=== PATIENT | male | born 1960 ===

== ENCOUNTER → 2024-05-17 09:03 | Outpatient (REF) | payer OTHER, SELFPAY | LOC: HWRCS 09:03 | PROVIDERS: ATTENDING PHYSICIAN Internal Medicine Cardiovascular Disease; FAMILY PHYSICIAN Internal Medicine | DX: R06.02 Shortness of breath (principal) | CPT/HCPCS: 93306 ==

== ENCOUNTER 2024-05-28 10:54 | Emergency (ER) | payer OTHER, SELFPAY ==
[2024-05-28] VITALS (7 sets, daily range): BP systolic 146–184; BP diastolic 80–117; BMI 32.6
[2024-05-28 11:44] LABS: % Basophils 1.1 % (0-2); % Eosinophils 6.4 % (0-6); % Immature Granulocytes 0.4 % (0-0.5); % Lymphocytes 21.2 % (20.5-51.1); % Monocytes 6.7 % (1.7-9.3); % Neutrophils 64.2 % (42.2-75.2); Absolute Basophils 0.1 10^3/uL (0-0.2); Absolute Eosinophils 0.7 10^3/uL (0-0.7); Absolute Lymphocytes 2.2 10^3/uL (1.2-3.4); Absolute Monocytes 0.7 10^3/uL (0.1-0.6); Absolute Neutrophils 6.7 10^3/uL (1.4-6.5); Hematocrit 43.9 % (39.0-52.0); Hemoglobin 15.8 g/dL (13.0-18.0); Mean Corpuscular Hgb 30.8 pg (27.0-31.0); Mean Corpuscular Volume 85.6 fL (80.0-94.0); Mean Platelet Volume 9.5 fL (7.4-10.4); Nucleated Red Blood Cells % 0 % (-); Platelet Count 242 10^3/uL (130-400); Red Blood Cell Count 5.13 10^6/uL (4.70-6.10); Red Cell Dist. Width 13.1 % (11.5-14.5); White Blood Cell Count 10.4 10^3/uL (4.8-10.8)
[2024-05-28 11:56] LABS: ALT (SGPT) 28 U/L (0-50); AST (SGOT) 25 U/L (17-59); Albumin 4.4 g/dl (3.5-5.0); Alkaline Phosphatase 130 U/L (38-126); Blood Urea Nitrogen 24 mg/dl (9-20); Carbon Dioxide 30 mmol/L (22-30); Chloride 103 mmol/L (98-107); Estimated Creatinine Clearance 77 ml/min; Glucose 207 mg/dl (70-99); Potassium 3.3 mmol/L (3.5-5.1); Sodium 140 mmol/L (135-145); Total Bilirubin 1.2 mg/dl (0.2-1.3); Total Protein 7.5 g/dl (6.3-8.2); eGFR > 60.00
[2024-05-28 12:12] LABS: Troponin I < 0.012 ng/ml
--- NOTE | 2024-05-28 12:17 | ED.GENMED ---
History of Present Illness
<Jennifer Liu PA-C - Last Filed: 05/28/24 20:52>
General
Chief Complaint: Chest Pain
Source: patient
Exam Limitations: none
Time Seen by Provider: 05/28/24 12:00
Nursing documentation reviewed up to this point in time: agreed with
History of Present Illness
History of Present Illness:
pt is a 64 y/o M with h/o HTN, HLD, NIDDM
here with chest pressure starting around 10 am while at rest
pt says he woke up feeling short of breath earlier with some cough
he didn't feel right
but didn't have pain until 10 am
his pain is a pressure but worse with deep breathing, gets a sharp pain and feels like he cannot take a deep breath
has never had a PE. did do some traveling to [facility] 2 mo ago
had outpatient echo 05/[address] brown after check up since it had been a lont time since he had seen cards
he has had previous sob episodes in the past which he say are attributed to anxiety attacks; no h/o stents
but he doesn't usually have pain with anxiety
has not notice dleg edema
no smoking
Phy Exam
<Jennifer Liu PA-C - Last Filed: 05/28/24 20:52>
Physical Exam
Physical Exam:
GENERAL: Alert , patient appears slightly uncomfortable
EYE: pupils equal and reactive
NECK: Supple
ENT: o/p clr, mmm.
CARDIAC: No appreciated murmur, regular
LUNGS: Possible crackles in bilateral bases, no acute respiratory distress, no wheezes/rhonchi
ABDOMEN: Soft, obese without focal tenderness, no r/g, no cvat, normal bowel sounds
NEUROLOGICAL: Alert and oriented, no focal neuro deficits
SKIN: Warm and dry, skin intact.
MUSCULOSKELETAL: Trace bilateral symmetric nontender edema, well perfused. neg ashish's sign
PSYCH: Normal and appropriate interaction.
Scores
<Jennifer Liu PA-C - Last Filed: 05/28/24 20:52>
Heart Score for Chest Pain Patients
STEMI patient?: No
History: Moderately Suspicious
ECG: Nonspecific Repolarization
Age: >45 - <65 years
Risk Factors: >/= 3 Risk Factors or History of CAD
Troponin: </= Normal Limit
Heart Score for Chest Pain Patients: 5
Heart Score Risk: 20.3% MACE over next 6 weeks
Course
<Jennifer Liu PA-C - Last Filed: 05/28/24 20:52>
Orders/Labs/Results
Orders:
Orders
05/28/24 10:54
ECG [Electrocardiogram (*1)] Urgent
Reason for Study: Chest Pain
05/28/24 10:55
EKG- Treatment ONCE
05/28/24 11:37
Cardiac Monitoring- Treatment ONCE
IV Insert/Care/Rem.- Treatment PRN
05/28/24 11:38
Complete Blood Count/With Diff Urgent
Comprehensive Metabolic Panel Urgent
NT-proBNP Urgent
Comment: ADD ON
Troponin I Urgent
05/28/24 12:15
CT Chest Pe Study Urgent
Comment:
Reason For Exam: pleuritic pain, sob
Nitroglycerin Sublingual [Nitrostat (Sublingual)] 0.4 mg SL NOW STA
05/28/24 12:16
Add On- LAB Urgent
Tests Added?: bnp
05/28/24 12:18
Add On- LAB Urgent
Tests Added?: Pro BNP
05/28/24 12:20
Aspirin Chewable [Low Strength Aspirin] 324 mg PO NOW STA
05/28/24 12:23
Electrocardiogram (*1) Urgent
Reason for Study: Chest Pain
EKG- Treatment ONCE
PTT Urgent
Prothrombin Time Urgent
05/28/24 13:43
Electrocardiogram (*1) Urgent
Reason for Study: Chest Pain
EKG- Treatment ONCE
05/28/24 13:54
Nitroglycerin Sublingual [Nitrostat (Sublingual)] 0.4 mg SL NOW STA
05/28/24 13:[address] Non Medication Order As Directed
Physician Order: PTT 6 hours after initial start of Heparin infusion
Above order entered?: Yes
05/28/24 14:00
Troponin I Urgent
Heparin [id number] Units/250 ml 25,000 units in 250 ml IV PER PROTOCOL
Weight to be used for heparin protocol in kilograms (kg):: 103
Protocol:: Cardiac Tx/Acute Coronary
PTT Goal Range to be used:: PTT 73 to 111 seconds
Order type:: Initial
INITIAL Infusion Dose (UNITS/KG/hr) & then follow protocol:: 15 units/kg/hr
Infusion Dose in UNITS/hr & then follow protocol (UNITS/hr):: 1,500
INFUSION RATE in mL/hr & then follow protocol (mL/hr):: 15
PTT less than or equal to 64 seconds:: Increase rate by 200 units/hr (+ 2 mL/hr)
PTT 64.1 to 72.9 seconds:: Increase rate by 100 units/hr (+ 1 mL/hr)
PTT 73 to 111 seconds:: Target Range. No change in rate.
PTT 111.1 to 130.9 seconds:: Decrease rate by 100 units/hr (- 1 mL/hr)
PTT 131 to 199.9 seconds:: HOLD for 1 hr. Then decrease rate by 200 units/hr (- 2 mL/hr)
PTT greater than or equal to 200 seconds:: HOLD for 2 hrs & Notify Provider. Then decrease by 200 units/hr (-
2 mL/hr)
Lab follow-up:: Each change, PTT q6h until 2 consecutive are therapeutic. Then PTT
daily.
05/28/24 15:15
Carvedilol [Coreg] 3.125 mg PO NOW STA
Abnormal Lab Results
05/28/24
11:38
Absolute Neuts (auto) 6.7 H 10^3/uL
(1.4-6.5)
Absolute Monos (auto) 0.7 H 10^3/uL
(0.1-0.6)
Eosinophils % 6.4 H %
(0-6)
Potassium 3.3 L mmol/L
(3.5-5.1)
BUN 24 H mg/dl
(9-20)
Glucose 207 H mg/dl
(70-99)
Alkaline Phosphatase 130 H U/L
(38-126)
05/28/24 11:38
05/28/24 11:38
Vital Signs
Initial and Last Documented VS:
Initial Vital Signs
Temp Pulse Resp BP Pulse Ox
97.9 F 101 20 184/117 98
05/28/24 11:04 05/28/24 11:04 05/28/24 11:04 05/28/24 11:04 05/28/24 11:04
Last Documented Vital Signs
Temp Pulse Resp BP Pulse Ox
97.9 F 107 10 170/90 98
05/28/24 11:04 05/28/24 16:15 05/28/24 12:45 05/28/24 16:00 05/28/24 16:15
<Madi Figueroa DO - Last Filed: 05/28/24 14:27>
Orders/Labs/Results
Orders:
Orders
05/28/24 10:54
ECG [Electrocardiogram (*1)] Urgent
Reason for Study: Chest Pain
05/28/24 10:55
EKG- Treatment ONCE
05/28/24 11:37
Cardiac Monitoring- Treatment ONCE
IV Insert/Care/Rem.- Treatment PRN
05/28/24 11:38
Complete Blood Count/With Diff Urgent
Comprehensive Metabolic Panel Urgent
NT-proBNP Urgent
Comment: ADD ON
Troponin I Urgent
05/28/24 12:15
CT Chest Pe Study Urgent
Comment:
Reason For Exam: pleuritic pain, sob
Nitroglycerin Sublingual [Nitrostat (Sublingual)] 0.4 mg SL NOW STA
05/28/24 12:16
Add On- LAB Urgent
Tests Added?: bnp
05/28/24 12:18
Add On- LAB Urgent
Tests Added?: Pro BNP
05/28/24 12:20
Aspirin Chewable [Low Strength Aspirin] 324 mg PO NOW STA
05/28/24 12:23
Electrocardiogram (*1) Urgent
Reason for Study: Chest Pain
EKG- Treatment ONCE
PTT Urgent
Prothrombin Time Urgent
05/28/24 13:43
Electrocardiogram (*1) Urgent
Reason for Study: Chest Pain
EKG- Treatment ONCE
05/28/24 13:54
Nitroglycerin Sublingual [Nitrostat (Sublingual)] 0.4 mg SL NOW STA
05/28/24 13:[address] Non Medication Order As Directed
Physician Order: PTT 6 hours after initial start of Heparin infusion
Above order entered?: Yes
05/28/24 14:00
Troponin I Urgent
Heparin [id number] Units/250 ml 25,000 units in 250 ml IV PER PROTOCOL
Weight to be used for heparin protocol in kilograms (kg):: 103
Protocol:: Cardiac Tx/Acute Coronary
PTT Goal Range to be used:: PTT 73 to 111 seconds
Order type:: Initial
INITIAL Infusion Dose (UNITS/KG/hr) & then follow protocol:: 15 units/kg/hr
Infusion Dose in UNITS/hr & then follow protocol (UNITS/hr):: 1,500
INFUSION RATE in mL/hr & then follow protocol (mL/hr):: 15
PTT less than or equal to 64 seconds:: Increase rate by 200 units/hr (+ 2 mL/hr)
PTT 64.1 to 72.9 seconds:: Increase rate by 100 units/hr (+ 1 mL/hr)
PTT 73 to 111 seconds:: Target Range. No change in rate.
PTT 111.1 to 130.9 seconds:: Decrease rate by 100 units/hr (- 1 mL/hr)
PTT 131 to 199.9 seconds:: HOLD for 1 hr. Then decrease rate by 200 units/hr (- 2 mL/hr)
PTT greater than or equal to 200 seconds:: HOLD for 2 hrs & Notify Provider. Then decrease by 200 units/hr (-
2 mL/hr)
Lab follow-up:: Each change, PTT q6h until 2 consecutive are therapeutic. Then PTT
daily.
05/28/24 15:15
Carvedilol [Coreg] 3.125 mg PO NOW STA
Abnormal Lab Results
05/28/24
11:38
Absolute Neuts (auto) 6.7 H 10^3/uL
(1.4-6.5)
Absolute Monos (auto) 0.7 H 10^3/uL
(0.1-0.6)
Eosinophils % 6.4 H %
(0-6)
Potassium 3.3 L mmol/L
(3.5-5.1)
BUN 24 H mg/dl
(9-20)
Glucose 207 H mg/dl
(70-99)
Alkaline Phosphatase 130 H U/L
(38-126)
05/28/24 11:38
05/28/24 11:38
Vital Signs
Initial and Last Documented VS:
Initial Vital Signs
Temp Pulse Resp BP Pulse Ox
97.9 F 101 20 184/117 98
05/28/24 11:04 05/28/24 11:04 05/28/24 11:04 05/28/24 11:04 05/28/24 11:04
Last Documented Vital Signs
Temp Pulse Resp BP Pulse Ox
97.9 F 107 10 170/90 98
05/28/24 11:04 05/28/24 16:15 05/28/24 12:45 05/28/24 16:00 05/28/24 16:15
<Jennifer Liu PA-C - Last Filed: 05/28/24 20:52>
MDM/Problems Addressed
Differential Diagnosis Includes:
NSTEMI, PE, less likely aortic dissection, pericarditis, myocarditis
MDM/Problems Addressed:
64-year-old M with h/o htn, jhld
obesity
no previous CAD
previous anxiety epipsodes
here with sob this mronig
now chestp ressure with breathing and worsening SOB since 10 am
pt appears uncomfortable, not hypoxoci, splintning, hypertensive but improved from triage
symmetric bps
ekg is abnormal but no old ekg visible, has inferior lateral t wave inversions without depressions, first trop neg but early
d/w dr benavides ed attending initially
given nitro and aspirin with mod relief of chest pressure from 7 to 3/10
ct pe neg
2nd ekg shows slightly worsening t waves, deeper with 1 mm depression v4, what looks like maybe reciprocal changes I, avL
d/w agronomy teacher [facility] cards dr horton who sent dr. brown to see pt who knows him
2nd dose of nitro also helped
heparin empirically started
pt seen by cards
2nd trop was neg
3rd ekg similar to previous
they were able to obtain oldekg which looked somewhat similar
given 2 neg trops, they felt that pt could be discharged
appreacite pt's tachycardia 108 range, maybe related to nitro
they recommended coreg and scheduled pt for stress test in 3 days.
<Jennifer Liu PA-C - Last Filed: 05/28/24 20:52>
*Critical Care Note
Total Time (30-74mins, 75-104mins- exclusive of procedures): Not Applicable
ED Attending Note
<Jennifer Liu PA-C - Last Filed: 05/28/24 20:52>
-
Portions of this chart may have been created with voice recognition software.� Occasional wrong word or��sound alike� substitutions may have occurred due to the inherent limitations of voice recognition software.
<Madi Figueroa DO - Last Filed: 05/28/24 14:27>
ED Attending Note
Patient seen and examined by attending physician: Yes
I performed the substantive portion of visit, reviewed & personally made and approve the management plan that is documented in note by myself or JENNIFER.: Yes
ED Attending Note:
62-year-old male presents with chest discomfort as described above. On my evaluation he states the pain is down to about a 1. Does have some history and risks including hypertension diabetes and obesity. Patient does describe a tightness that is
worse when he breathes but there is a baseline level of tightness in his chest. Does have some subtle EKG changes. Exam: Obese, awake and alert, resting heart rate at 108 on my exam. Heart regular. No murmur. Trace edema of the legs.
Assessment and plan: IV heparin, continue nitrates as needed. Trend troponin. Cardiology at bedside
Discharge Plan
Departure
Patient Disposition: Home (Routine Discharge)
Date of Disposition: 05/28/24
Time of Disposition: 16:17
Patient with high blood pressure during this ER visit?: Yes
Condition: Fair
Covid-19: Not Applicable
Discharge Problem:
Chest pain
Instructions: Chest Pain DCA Follow Up
Prescriptions:
New
carvedilol [Coreg] 3.125 mg tablet
3.125 mg PO BID Qty: 60 11RF
aspirin 81 mg tablet,chewable
81 mg PO DAILY Qty: 1 0RF
Referrals:
UNKNOWN - PT DOES,NOT KNOW [Family Provider] -
Activity Restrictions/Additional Instructions:
Dr. rBown's office will call you to arrange for stress testing to assess for coronary artery disease.
(IT IS SCHEDULED FOR Friday 730 AM)
Interventions
Interventions:
*Risk Screen - Suicide Last Done: 05/28/24 11:04
*General Assessment Last Done: 05/28/24 11:04
*Neglect/Abuse Screening Last Done: 05/28/24 11:04
ED- Fall Risk Assessment Last Done: 05/28/24 11:49
*Nursing Disposition Last Done: 05/28/24 16:30
ED- Cardiac Assessment Last Done: 05/28/24 11:49
Discharge Date and Time
Discharge Date/Time: 05/28/24 16:30
Print Language: IRISH
[2024-05-28] MEDS: NITROSTAT (SUBLINGUAL) 0.400000000000000022 MG SL ×2 (12:24→13:58)
[2024-05-28] MEDS: LOW STRENGTH ASPIRIN 324 MG PO (12:24)
[2024-05-28 12:43] LABS: NT-proBNP 40.7 pg/ml
[2024-05-28 12:45] LABS: INR 1.04; PT 13.4 Sec (11.4-14.6)
[2024-05-28 12:46] LABS: APTT 28.1 Sec (23.4-35.0)
[2024-05-28] MEDS: HEPARIN 25000 UNITS/250 ML IV (14:15)
[2024-05-28 14:39] LABS: Troponin I < 0.012 ng/ml
--- NOTE | 2024-05-28 14:56 | CON.CAR ---
Addendum entered and electronically signed by Jp Brewster MD 05/28/24 15:30:
Attending addendum: Patient seen and examined. PA note reviewed and findings independently confirmed by me. Briefly, this is a 64-year-old gentleman with a past medical history notable for marginally controlled hypertension, hyperlipidemia, type 2
diabetes x 1 year, and obstructive sleep apnea no longer wearing CPAP. Over the past 6 months he has noticed some shortness of breath at night which she describes as a feeling of not being able to get air out of his lungs. He reports a coughing
fit last evening with left shoulder discomfort radiating to the central chest. His electrocardiogram has baseline T wave inversions but has remained reasonably stable. Troponin levels here in the emergency department are undetectable x 2 with no
significant dynamic ECG changes. He has been chest pain-free. Blood pressures are marginally controlled at home typically running in the 140s.
GEN: AAO x 3. No acute distress. Obese
HEENT: NC/AT, sclera are anicteric, hearing and nares are normal. MMM
NECK: Supple. Normal JVP
LUNGS: Clear to bases bilaterally. No wheezing or rhonchi
CV: Regular rate and rhythm. Normal S1/S2. No S3, No S4. Murmur: None
ABD : Soft, NT, ND, No HSM. Bowel sounds are present.
EXT: Trace left lower extremity edema. Dorsalis pedal pulses palpable on the left and posterior tibial pulse on the right
NEURO: No focal neurologic deficits
Recommendation
-Aspirin 81 mg daily
-Carvedilol 3.125 mg p.o. twice daily with titration as blood pressure tolerates
-Explained to patient that he must return to the emergency room for any recurring chest pain. Both patient and his were in agreement
-Reassuring that troponins have remained serially undetectable
-Will schedule outpatient stress study either PET CT or Lexiscan Myoview
Original Note:
Consultation
Consultation Request
Date/Time Consultation Requested: 05/28/2024
Date/Time Consultation Performed: 05/28/2024
Requesting Provider: Dr. Figueroa
Performing Provider: Dr. Brewster
Reason for Consultation: Chest pain
Medical History
-
History of Present Illness:
HPI: Aly is a 64 year old male with PMH of hypertension, hyperlipidemia, DM 2, JUNIOR, and abnormal EKG. He presented to [facility] for evaluation of chest pain. Over the past 6 months, he has noticed SOB, typically at night. He describes this as feeling
like he is not able to get all his air out. He notes typically these episodes are related to anxiety. Denies any exertional symptoms, however he is not very active due to orthopedic limitations. He has chronic back and leg pain related to prior
injuries and he is not able to exercise. He was seen recently by cardiology and was arranged for echo which showed preserved EF with no significant valvular disease. This AM, he reports he woke up with SOB that he states felt somewhat different from
his usual and he felt like he was not able to get enough air in. He then had a coughing fit and after coughing, started to have L shoulder pain. The pain in his shoulder then moved into his central chest and he described it as a severe tightness in
his chest, rating it a 9/10 in severity. He came to ER for evaluation given severity of symptoms. On arrival, he was markedly hypertensive with BP 184/117. EKG overall stable with T wave inversions inferolaterally. Labwork unremarkable with negative
troponin and CT scan negative for PE and aortic dissection. He was given aspirin 324mg and 2 SL nitro and his pain has improved throughout his time in the ER, currently states pain is minimal, only 1/10. He was started on heparin in ER and
cardiology consulted for evaluation.
PMH:
Hypertension
Hyperlipidemia
DM 2
JUNIOR, noncompliant w/ CPAP
Abnormal EKG
Past Medical History
Past Medical History: Other (In HPI)
Past Surgical History: Other (lumbar laminectomy, wrist fusion)
Social History
Tobacco: Non-Smoker
Alcohol: None
Drug: None
Personal:
Living: With Family
Employment: Disabled
Family History
Family History: CAD
Allergies / Home Medications
Allergy/AdvReac Type Severity Reaction Status Date / Time
No Known Allergies Allergy Unverified 05/28/24 11:04
Review of Systems
-
History Source: Patient and Family ( at bedside)
All other systems: Negative unless noted
Physical Exam
Vital Signs
Temp Pulse Resp BP Pulse Ox
97.9 F 106 10 153/89 97
05/28/24 11:04 05/28/24 14:30 05/28/24 12:45 05/28/24 14:00 05/28/24 14:30
Lab Results
05/28/24 11:38
05/28/24 11:38
Troponin I < 0.012 ng/ml 05/28/24 14:00
Gii-P-Mvhteovkbog Pept Cancelled 05/28/24 12:15
Physical Exam
General: Well Developed, Well Nourished and No Apparent Distress
HEENT: Normocephalic, Anicteric and Moist Mucous Membranes
Respiratory: Clear and Non Labored Respirations
Cardiac: S1/S2 and Regular Rhythm
Musculoskeletal: No Clubbing, No Cyanosis and No Edema
Skin: Warm and Dry
Neuro: AO x 3 and Nonfocal/Grossly Intact
Psych: Calm
Impression / Plan
-
PCP: Dr. Ramirez
[facility] Tender: Dr. Dubose
Impression:
Presented with chest pain
SOB
Hypertension
Hyperlipidemia
DM 2
JUNIOR, noncompliant w/ CPAP
Abnormal EKG
Echo 05/17/2024: EF 55-60%, no significant valvular disease
Plan:
-Presented w/ chest pain and SOB this AM.
-Troponin negative x 2 in ER. Would consider checking 3rd troponin to ensure remains negative.
-Recent echo 05/17 w/ preserved EF and no significant valvular disease.
-EKG reviewed. SR with T wave inversions inferolaterally, overall stable compared to prior.
-CT of chest negative for PE and aortic dissection
-Pain improved in ER following SL nitro x2. Almost entirely pain free at this time.
-Patient does have risk factors for coronary disease, so will arrange for OP stress testing as long as he remains pain free. Cardiology office will call patient to schedule testing for next week.
-BP significantly elevated on arrival, however improving throughout stay in ER.
-As OP is maintained on nifedipine 60mg daily, HCTZ 25mg daily, and losartan 100mg daily. Will add coreg 3.125mg BID.
-Start aspirin 81mg daily.
-LDL 75 05/04/2024, continue atorvastatin 40mg daily.
-Hgb A1c 6.9% 05/04, continue metformin and close follow up with PCP.
-ProBNP 40.7. Continue HCTZ.
HPI: Aly is a 64 year old male with PMH of hypertension, hyperlipidemia, DM 2, JUNIOR, and abnormal EKG. He presented to [facility] for evaluation of chest pain. Over the past 6 months, he has noticed SOB, typically at night. He describes this as feeling
like he is not able to get all his air out. He notes typically these episodes are related to anxiety. Denies any exertional symptoms, however he is not very active due to orthopedic limitations. He has chronic back and leg pain related to prior
injuries and he is not able to exercise. He was seen recently by cardiology and was arranged for echo which showed preserved EF with no significant valvular disease. This AM, he reports he woke up with SOB that he states felt somewhat different from
his usual and he felt like he was not able to get enough air in. He then had a coughing fit and after coughing, started to have L shoulder pain. The pain in his shoulder then moved into his central chest and he described it as a severe tightness in
his chest, rating it a 9/10 in severity. He came to ER for evaluation given severity of symptoms. On arrival, he was markedly hypertensive with BP 184/117. EKG overall stable with T wave inversions inferolaterally. Labwork unremarkable with negative
troponin and CT scan negative for PE and aortic dissection. He was given aspirin 324mg and 2 SL nitro and his pain has improved throughout his time in the ER, currently states pain is minimal, only 1/10. He was started on heparin in ER and
cardiology consulted for evaluation.
Data Reviewed
-
EKG: Tracing Personally Visualized and interpreted
CT Scan: Report Reviewed by me
Labs: Labs Reviewed by me
Old Records: Reviewed
[2024-05-28] MEDS: COREG 3.125 MG PO (15:24)
== END 2024-05-28 16:30 | disposition home or self-care (01) ==
LOC: EMR 10:54
PROVIDERS: Physician Assistant; Student in an Organized Health Care Education/Training Program; EMERGENCY PHYSICIAN Emergency Medicine
DX: R07.89 Other chest pain (principal); I10 Essential (primary) hypertension; E78.00 Pure hypercholesterolemia, unspecified; E11.9 Type 2 diabetes mellitus without complications; F41.9 Anxiety disorder, unspecified; G47.33 Obstructive sleep apnea (adult) (pediatric); R94.31 Abnormal electrocardiogram [ECG] [EKG]; Z79.82 Long term (current) use of aspirin; Z79.899 Other long term (current) drug therapy; Z82.49 Family history of ischemic heart disease and other diseases of the circulatory system; Z91.199 Patient's noncompliance with other medical treatment and regimen due to unspecified reason
CPT/HCPCS: 99284; 96374; 71275; 80053; 83880; 84484; 85025; 85610; 85730; 93005; Q9967

== ENCOUNTER → 2024-05-31 07:41 | Outpatient (REF) | payer OTHER, SELFPAY ==
[2024-05-31] MEDS: LEXISCAN 0.400000000000000022 MG IV (09:32)
== END ==
LOC: RCS 07:41
PROVIDERS: ATTENDING PHYSICIAN Internal Medicine Cardiovascular Disease; FAMILY PHYSICIAN Internal Medicine
DX: R07.89 Other chest pain (principal); R94.31 Abnormal electrocardiogram [ECG] [EKG]; G47.33 Obstructive sleep apnea (adult) (pediatric); E11.9 Type 2 diabetes mellitus without complications; I10 Essential (primary) hypertension; E78.2 Mixed hyperlipidemia
CPT/HCPCS: 78452; 93017; A9500; J2785

== ENCOUNTER 2024-12-02 14:39 | Emergency (ER) | payer OTHER, SELFPAY ==
[2024-12-02 15:07] VITALS: BP 141/78
--- NOTE | 2024-12-02 16:17 | ED.MUSCINJ ---
HPI-Injury
General
Chief Complaint: Fall
Source: patient
Exam Limitations: none
Time Seen by Provider: 12/02/24 15:37
Nursing documentation reviewed up to this point in time: agreed with
History of Present Illness-Injury
Is this injury a work related problem?: No
Is pt an associate of [facility] [place]?: No
Initial Injury comments:
Patient states he tripped on curb and fell. Denies hitting his head. COmplains of pain to right hip, right ankle, left wrist. Injury occurred just HEAD OF MUSIC. Brought to ED by EMS
Past History
Past History
ED Past Medical History: HTN and NIDDM
Review of Systems
Review of Systems
Allergies reviewed?: Yes
All Other Systems: ROS reviewed and negative except as documented in HPI and ROS
Constitutional: Reports no symptoms
EENT: Reports no symptoms
Respiratory: Reports no symptoms
Cardiac: Reports no symptoms
ABD/GI: Reports no symptoms
Musculoskeletal: Reports joint pain (pain to left wrist, right ankle, right hip)
Skin: Reports no symptoms
Neurological: Reports no symptoms
Psychiatric: Reports no symptoms
Musculoskeletal Injury Exam
Musculoskeletal Injury Exam
Right Hip:
Pain with Movement?: Moderate
Tender to palpation?: Moderate
Soft tissue swelling?: None
External deformity and angulation?: None
Joint effusion?: None
Contusion?: Moderate
Hematoma-local bleeding into tissue?: None
Strain- Sprain- Tear (Connective tissue injury)?: Moderate
Crepitus with movement?: No
Joint instability?: No
Malalignment/deformity?: No
Range of motion: Limited
Distal skin color and temperature: normal-warm & good color
Capillary Refill: normal
Normal distal neurovascular exam?: Yes
Peripheral Pulses: posterior tibial (right): 3+ and dorsalis pedis (right): 3+
Right Lateral Ankle:
Pain with Movement?: Moderate
Tender to palpation?: Moderate
Soft tissue swelling?: Mild
External deformity and angulation?: None
Joint effusion?: None
Contusion?: None
Hematoma-local bleeding into tissue?: None
Strain- Sprain- Tear (Connective tissue injury)?: Moderate
Crepitus with movement?: No
Malalignment/deformity?: No
Range of motion: Limited
Distal skin color and temperature: normal-warm & good color
Capillary Refill: normal
Normal distal neurovascular exam?: Yes
Left Wrist:
Pain with Movement?: Moderate
Tender to palpation?: Moderate
Soft tissue swelling?: None
External deformity and angulation?: None
Joint effusion?: None
Contusion?: Moderate
Hematoma-local bleeding into tissue?: None
Strain- Sprain- Tear (Connective tissue injury)?: Moderate
Crepitus with movement?: No
Joint instability?: No
Malalignment/deformity?: No
Range of motion: Limited
Distal skin color and temperature: normal-warm & good color
Capillary Refill: normal
Normal distal neurovascular exam?: Yes
Peripheral Pulses: radial (left): 3+
Phy Exam
General Physical Exam
General Presentation: mild distress
General age: appears stated age
General Skin: warm and dry
General Habitus: normal
General Mental: alert
Pulmonary Exam
Pulmonary Exam: no respiratory distress and chest non tender
Gastrointestinal Exam
Gastrointestinal Exam: normal bowel sounds, non tender, soft, no organomegaly and non distended
Neurological Exam
Neurological Exam: alert, oriented x3, CN II-XII intact, no motor deficits, no sensory deficits and speech normal
Musculoskeletal Exam
Musculoskeletal Exam: full ROM and neuro vasc intact
Skin Exam
Skin Exam: normal color
Psychiatric Exam
Psychiatric Exam: normal mood/affect
Injury Course
Orders/Labs/Results
Orders:
Orders
12/02/24 16:16
Ankle, Right 3 view CR [CR Ankle - Right Min 3 Views *] Urgent
Comment:
Reason For Exam: fall, pain
Hip, Right 2-3 Views [CR Hip - RT w/wo Pel 2-3 Vw*] Urgent
Comment:
Reason For Exam: fall, pain
Include a pelvis x-ray?: Yes
Lumbar Spine Complete, 4 View [CR Lumbar Spine Comp Min 4 Vw*] Urgent
Comment:
Reason For Exam: fall
Wrist, Left 3 Views CR [CR Wrist - Left Min 3 Views] Urgent
Comment:
Reason For Exam: fall, pain
12/02/24 17:22
[place] Wrist Left-Treatment ONCE
*Critical Care Note
Total Time (30-74mins, 75-104mins- exclusive of procedures): Not Applicable
ED Attending Note
-
Portions of this chart may have been created with voice recognition software.� Occasional wrong word or��sound alike� substitutions may have occurred due to the inherent limitations of voice recognition software.
Discharge Plan
Departure
Patient Disposition: Home (Routine Discharge)
Date of Disposition: 12/02/24
Time of Disposition: 17:22
Patient with high blood pressure during this ER visit?: No
Condition: Good
Covid-19: Not Applicable
Discharge Problem:
Left wrist sprain, Contusion of hip
Instructions: Contusion (DC), Preventing falls in adults, Using Cold for Pain
Prescriptions:
No Action
carvedilol [Coreg] 3.125 mg tablet
3.125 mg PO BID Qty: 60 11RF
aspirin 81 mg tablet,chewable
81 mg PO DAILY Qty: 1 0RF
Activity Restrictions/Additional Instructions:
Follow up with your family doctor.
Interventions
Interventions:
ED-Musculoskeletal Assessment Last Done: 12/02/24 16:25
ED-Skin Assessment Last Done: 12/02/24 16:25
Discharge Date and Time
Print Language: OCCITAN
[2024-12-02] MEDS: MOTRIN 600 MG PO (17:53)
[2024-12-02 17:57] VITALS: BP 128/77
== END 2024-12-02 18:17 | disposition home or self-care (01) ==
LOC: EMR 14:39
PROVIDERS: EMERGENCY PHYSICIAN Emergency Medicine; FAMILY PHYSICIAN Internal Medicine
DX: S63.502A Unspecified sprain of left wrist, initial encounter (principal); S70.01XA Contusion of right hip, initial encounter; W01.0XXA Fall on same level from slipping, tripping and stumbling without subsequent striking against object, initial encounter; I10 Essential (primary) hypertension; E11.9 Type 2 diabetes mellitus without complications
CPT/HCPCS: 99283; 72110; 73110; 73502; 73610

== ENCOUNTER → 2025-04-21 12:02 | Outpatient (REF) | payer OTHER, SELFPAY | LOC: DHSLP 12:02 | PROVIDERS: ATTENDING PHYSICIAN Internal Medicine Critical Care Medicine; FAMILY PHYSICIAN Internal Medicine | DX: G47.33 Obstructive sleep apnea (adult) (pediatric) (principal); R09.02 Hypoxemia | CPT/HCPCS: 95800 ==